=== PATIENT | female | born 1975 | race Caucasian/White ===

== ENCOUNTER → 2017-12-13 12:00 | Outpatient (CLI) | payer OTHER, SELFPAY ==
--- NOTE | 2017-12-13 | DI.MG.S_ITS ---
BILATERAL DIGITAL SCREENING MAMMOGRAM 3D/2D WITH CAD: 12/13/2017 CLINICAL: Routine screening. Family history of breast cancer. Comparison is made to exams dated: 11/05/2016 mammogram and 09/24/2016 mammogram - [facility]. The tissue of both breasts is heterogeneously dense. This may lower the sensitivity of mammography. Current study was also evaluated with a Computer Aided Detection (CAD) system. No significant masses, calcifications, or other findings are seen in either breast. There has been no significant interval change. IMPRESSION: NEGATIVE There is no mammographic evidence of malignancy. A 1 year screening mammogram is recommended. This exam was interpreted at Station ID: [id number]. NOTE: For mammograms, a report in lay terms will be sent to the patient. Approximately 15% of breast malignancies will not be visualized mammographically. In the management of a palpable breast mass, a negative mammogram must not discourage biopsy of a clinically suspicious lesion. Electronically Signed By: Bianca ramirez/jannette:12/13/2017 15:24:19 copy to: Radha Santiago letter sent: Normal Exam ACR BI-RADS Category 1: Negative 3341F
== END ==
PROVIDERS: Family Provider Obstetrics & Gynecology; PCP Obstetrics & Gynecology; Visit Provider Obstetrics & Gynecology
DX: Z12.31 Encounter for screening mammogram for malignant neoplasm of breast (principal); Z80.3 Family history of malignant neoplasm of breast
CPT/HCPCS: 77063; 77067

== ENCOUNTER → 2021-01-09 07:56 | Outpatient (CLI) | payer OTHER, SELFPAY ==
--- NOTE | 2021-01-09 | DI.MG.S_ITS ---
BILATERAL DIGITAL SCREENING MAMMOGRAM 3D/2D WITH CAD: 01/09/2021 CLINICAL: Routine screening. Family history of breast cancer. Comparison is made to exams dated: 11/05/2016 ultrasound, 11/05/2016 ultrasound, 11/05/2016 mammogram, and 09/24/2016 mammogram - [facility]. The tissue of both breasts is heterogeneously dense. This may lower the sensitivity of mammography. Current study was also evaluated with a Computer Aided Detection (CAD) system. There are oval lymph nodes in the left breast posterior depth superior region seen on the mediolateral oblique view only. These are more prominent and increased in size. No other significant masses, calcifications, or other findings are seen in either breast. IMPRESSION: INCOMPLETE: NEEDS ADDITIONAL IMAGING EVALUATION The oval lymph nodes in the left breast are indeterminate. An ultrasound is recommended. This exam was interpreted at Station ID: [id number]. NOTE: For mammograms, a report in lay terms will be sent to the patient. Approximately 15% of breast malignancies will not be visualized mammographically. In the management of a palpable breast mass, a negative mammogram must not discourage biopsy of a clinically suspicious lesion. Electronically Signed By: Amadeo Burroughs M.D. aty/:01/09/2021 09:09:48 copy to: Radha Santiago letter sent: Need Ultrasound ACR BI-RADS Category 0: Incomplete 3340F
== END ==
PROVIDERS: Family Provider Obstetrics & Gynecology; PCP Naturopath; Referring Provider Naturopath; Visit Provider Naturopath
DX: Z12.31 Encounter for screening mammogram for malignant neoplasm of breast (principal); Z80.3 Family history of malignant neoplasm of breast
CPT/HCPCS: 77063; 77067

== ENCOUNTER → 2021-03-14 08:59 | Outpatient (CLI) | payer OTHER, SELFPAY ==
--- NOTE | 2021-03-14 09:01 | DI.US.S_ITS ---
LIMITED ULTRASOUND OF LEFT BREAST: 03/14/2021 CLINICAL: Patient returns today to evaluate focal asymmetries in the left breast. Comparison is made to exams dated: 01/09/2021 mammogram, 12/13/2017 mammogram, and 11/05/2016 mammogram - [facility]. Color flow ultrasound of the left breast 10-2 o'clock region was performed. Kelley scale images of the real-time examination were reviewed. There is a benign 0.8 cm x 0.9 cm x 0.5 cm oval normal lymph node with a circumscribed margin in the left breast at 2 o'clock posterior depth 12 cm from the nipple. This oval normal lymph node is hypoechoic with fatty hilum. This correlates with mammography findings. Color flow imaging demonstrates that there is no vascularity present. IMPRESSION: BENIGN There is no sonographic evidence of malignancy. The 0.8 cm x 0.9 cm x 0.5 cm oval normal lymph node in the left breast is benign. A 1 year screening mammogram is recommended. This exam was interpreted at Station ID: [id number]. Electronically Signed By: Leonel bruce/jannette:03/14/2021 10:07:41 copy to: Radha Santiago letter sent: Normal Exam Ultrasound BI-RADS: 2 Benign
== END ==
PROVIDERS: Family Provider Obstetrics & Gynecology; PCP Naturopath; Referring Provider Naturopath; Visit Provider Naturopath
DX: R92.8 Other abnormal and inconclusive findings on diagnostic imaging of breast (principal); N64.89 Other specified disorders of breast
CPT/HCPCS: 76642

== ENCOUNTER → 2022-01-08 13:56 | Outpatient (CLI) | payer OTHER, SELFPAY ==
--- NOTE | 2022-01-08 | DI.US.S_ITS ---
P weight no no ROCEDURE: US PELVIC COMPLETE INDICATIONS: VAGINAL BLEEDING/POST MENOPAUSE TECHNIQUE: Real-time scanning was performed of the pelvic organs, with image documentation. Additional endovaginal scanning was necessary due to incomplete visualization of the adnexal and endometrial structures by transabdominal scanning. COMPARISON: [facility], , PELVIC COMPLETE, 12/19/2006, 8:05. FINDINGS: Uterus: Uterus is anteverted and normal in size at 6.9 x 2.9 x 3.9 cm. The myometrium is homogeneous. The endometrium measures 1.0 mm combined thickness. Ovaries: The right ovary measures 0.8 x 1.1 x 2.0 cm, with a calculated ovarian volume of 0.8 cc. The left ovary measures 1.6 x 0.8 x 0.9 cm, with a calculated ovarian volume of 0.6 cc. The ovaries have a normal sonographic appearance. Less than 12 follicles can be seen in each ovary. No adnexal masses are seen. Other: No pathologic free abdominal or pelvic fluid. IMPRESSION: No findings to explain postmenopausal bleeding. Endometrium measures 1 mm in combined thickness. We strive to produce accurate, complete, and clear reports of imaging services. To assist us in improving patient care, this report was composed using standard report templates and voice recognition software. Therefore, it may contain abnormal punctuation, insertions and/or omissions. Occasional wrong-word or sound-alike substitutions may occur. Though we review the report and make efforts to correct it, we do recommend that the report be read carefully in proper context to recognize any text inaccuracies. Dictated by: Bianca Figueroa M.D. on 01/08/2022 at 17:28 Approved by: Bianca Figueroa M.D. on 01/08/2022 at 17:29
== END ==
PROVIDERS: Family Provider Obstetrics & Gynecology; PCP Naturopath; Referring Provider Naturopath; Visit Provider Naturopath
DX: N95.0 Postmenopausal bleeding (principal); E34.9 Endocrine disorder, unspecified
CPT/HCPCS: 76830; 76856

== ENCOUNTER → 2022-08-15 15:57 | Outpatient (CLI) | payer OTHER, SELFPAY ==
--- NOTE | 2022-08-15 15:58 | DI.MG.S_ITS ---
BILATERAL DIGITAL SCREENING MAMMOGRAM 3D/2D WITH CAD: 08/15/2022 CLINICAL: Routine screening. Family history of breast cancer. Comparison is made to exams dated: 01/09/2021 mammogram, 12/13/2017 mammogram, and 11/05/2016 mammogram - [facility]. Both breasts are heterogeneously dense, which may obscure small masses (category c / 51-75% glandular tissue). Current study was also evaluated with a Computer Aided Detection (CAD) system. There is an asymmetry with a spiculated margin in the right breast middle depth superior region seen on the mediolateral oblique view only. No other significant masses, calcifications, or other findings are seen in either breast. IMPRESSION: INCOMPLETE: NEEDS ADDITIONAL IMAGING EVALUATION The asymmetry in the right breast is indeterminate. Additional views with possible ultrasound are recommended. Based on the Tyrer Cuzick model (a risk assessment model) the patient's lifetime risk is 13.7% and her 10 year risk is 2.8%. According to the ACR, ACS, and NCCN guidelines, an annual breast MRI exam along with mammogram is recommended if the patient's lifetime risk is 20% or greater. This exam was interpreted at Station ID: [id number]. NOTE: For mammograms, a report in lay terms will be sent to the patient. Approximately 15% of breast malignancies will not be visualized mammographically. In the management of a palpable breast mass, a negative mammogram must not discourage biopsy of a clinically suspicious lesion. Electronically Signed By: Man Tate M.D. acr/:08/16/2022 13:24:02 copy to: Radha Santiago letter sent: Additional Imaging Needed ACR BI-RADS Category 0: Incomplete 3340F
== END ==
PROVIDERS: Family Provider Obstetrics & Gynecology; PCP Naturopath; Referring Provider Naturopath; Visit Provider Naturopath
DX: Z12.31 Encounter for screening mammogram for malignant neoplasm of breast (principal); Z80.3 Family history of malignant neoplasm of breast
CPT/HCPCS: 77063; 77067

== ENCOUNTER → 2022-09-06 11:46 | Outpatient (CLI) | payer OTHER, SELFPAY ==
--- NOTE | 2022-09-06 11:48 | DI.US.S_ITS ---
LIMITED ULTRASOUND OF RIGHT BREAST: 09/06/2022 CLINICAL: Patient returns today to evaluate a focal asymmetry in the right breast. Comparison is made to exams dated: 09/06/2022 mammogram, 08/15/2022 mammogram, 01/09/2021 mammogram, and 12/13/[address] - [facility]. Real-time ultrasound of the right breast 11-12 o'clock region was performed. Kelley scale images of the real-time examination were reviewed. No significant abnormalities were seen sonographically in the right breast. IMPRESSION: NEGATIVE There is no sonographic evidence of malignancy. A 1 year screening mammogram is recommended. Exam findings were conveyed to the patient. This exam was interpreted at Station ID: [id number]. Electronically Signed By: Mukesh Fritz M.D. slc/:09/06/2022 13:03:35 copy to: Radha Santiago letter sent: Normal Exam Ultrasound BI-RADS: 1 Negative
--- NOTE | 2022-09-06 11:48 | DI.MG.S_ITS ---
UNILATERAL RIGHT DIGITAL DIAGNOSTIC MAMMOGRAM 3D/2D WITH ADDITIONAL VIEWS: 09/06/2022 CLINICAL: Additional evaluation requested from prior study. Comparison is made to exams dated: 08/15/2022 mammogram, 01/09/2021 mammogram, and 12/13/2017 mammogram - [facility]. The right breast is heterogeneously dense, which may obscure small masses (category c / 51-75% glandular tissue). There is an asymmetry with a spiculated margin in the right breast middle depth superior region seen on the mediolateral oblique view only. This is not seen in additional views. No other significant masses or calcifications are seen in the breast. IMPRESSION: INCOMPLETE: NEEDS ADDITIONAL IMAGING EVALUATION The asymmetry in the right breast is indeterminate. A targeted ultrasound is recommended and will immediately follow. Based on the Tyrer Cuzick model (a risk assessment model) the patient's lifetime risk is 13.7% and her 10 year risk is 2.8%. According to the ACR, ACS, and NCCN guidelines, an annual breast MRI exam along with mammogram is recommended if the patient's lifetime risk is 20% or greater. This exam was interpreted at Station ID: [id number]. NOTE: For mammograms, a report in lay terms will be sent to the patient. Approximately 15% of breast malignancies will not be visualized mammographically. In the management of a palpable breast mass, a negative mammogram must not discourage biopsy of a clinically suspicious lesion. Electronically Signed By: Mukesh Fritz M.D. slc/:09/06/2022 12:17:31 copy to: Radha Santiago ACR BI-RADS Category 0: Incomplete 3340F
== END ==
PROVIDERS: Family Provider Obstetrics & Gynecology; PCP Naturopath; Referring Provider Naturopath; Visit Provider Naturopath
DX: N64.89 Other specified disorders of breast (principal); R92.8 Other abnormal and inconclusive findings on diagnostic imaging of breast
CPT/HCPCS: 76642; 77065; G0279

== ENCOUNTER 2023-09-20 08:15 | Outpatient (RCR) | payer OTHER, SELFPAY ==
--- NOTE | 2023-07-19 16:09 | PT.OIE ---
Current Diagnoses Other female genital prolapse (07/19/23) Deep dyspareunia (07/19/23) Past Surgical History History of third molar tooth extraction Visit Care Team Role Provider Type Radha Santiago MD Family Provider Physician Specialty: Gynecology CARDIOLOGY TEACHER Obstetrics Address: [address] [place] [address], [address] Email: [email or web address] Attending Provider Non-Staff Primary Care Provider Referring Provider Specialty: Naturopathy Address: [address], [address] [place] [address] [address], [place], [address] Email: Physical Therapy Initial Evaluation PT-OP-A Visit Information Start: 07/04/23 17:52 Freq: Status: Active Protocol: Document 07/19/23 12:59 LRN (Rec: 07/19/23 13:49 LRN [id number]) Out-Patient Physical Therapy Visit Information Visit Information Visit Type Initial Evaluation Visit Start Time 13:00 Visit Stop Time 13:48 Visit Number 1 Evaluation Information Evaluation Date 07/19/23 Precautions Precautions None. Previous L lower abdominal pain from colitis. PT-OP-B Current Condition Start: 07/04/23 17:52 Freq: Status: Active Protocol: Document 07/19/23 12:59 LRN (Rec: 07/19/23 13:49 LRN [id number]) Current Condition History of Current Condition Onset Date 2 yrs ago Current Complaints Urinary leakage. History of Current Condition Pt thinks she has a prolapse resulting in urinary leakage. She denies pelvic or vaginal pain. States it is hard for her to hold her urine and if she thinks she has to urinate she leaks a little. States she has a feeling of fullness and pressure. Has had therapy previously, after first childbirth in 2009. States she feels she has strength in the posterior PF, but not in anterior PF. Pt reports going into menopause 2 yrs ago. Pt is a massage therapist. Prior Treatments and Tests Previous Developmental History Developmental History Pt has had 2 vaginal births. First childbirth in 2008 after 60 hrs in labor (water ) . Urinary leakage started in 2010 after first childbirth ( 2009). 08/09/11 was 2nd childbirth without complications. Treatment Goals Patient/Caregiver Goals Pt goals: 1) Not urinate in her pants several times a day and 2) to start exercising ( running) again, and 3) if prolapse, to reduce prolapse. Personal Factors Other Personal Factors That May Effect Colitis in the past in the Therapy/Recovery Sigmoid Colon. Lives on [place] and is a massage therapist. PT-OP-C Subjective Start: 07/04/23 17:52 Freq: Status: Active Protocol: Document 07/19/23 12:59 LRN (Rec: 07/19/23 13:49 LRN [id number]) Patient Questionnaires Pelvic Pain and Urgency/Frequency Patient Symptom Scale Pelvic Pain Score 2 PT-OP-I Pelvic Floor Start: 07/04/23 17:52 Freq: Status: Active Protocol: Document 07/19/23 12:59 LRN (Rec: 07/19/23 13:49 LRN [id number]) Pelvic Floor Assessment Urine Urinary Symptoms Falling Out Feeling/Heavy Other Urinary Symptoms Waits on toilet to finish urinating. Leakage Size Small Leakage Cause Cough,Lifting,Sneeze,Urge Leaks Per Day 4-5x/day Voiding Frequency 8-10x/day Nocturia 1x Bowel Bowel Movement Frequency 2-3 Pelvic Clock Pelvic Clock 3-6 Tightness Pelvic Clock 6-9 Tightness Pelvic Clock Other Tender at PF 3-5 & 8 of PF clock. Possible tissue swelling at 3- 5 of PF clock. Prolapse Cystocele Grade 2 Prolapse Comments Loose tissue felt at posterior aspect of vaginal canal indicating possible rectocele present. Today no rectocele is palpable. Perineal Descent Resting Absent Bearing Present Contraction Ability Voluntary Contraction Moderate Voluntary Relaxation Moderate Manual Muscle Testing Left 3 Manual Muscle Testing Right 3 Manual Muscle Testing Anterior 2 Manual Muscle Testing Posterior 2 Muscle Endurance (Seconds) 4 Number of Quick Contractions In 10 6 Seconds PT-OP-J Posture/Palpation/Skin Start: 07/04/23 17:52 Freq: Status: Active Protocol: Document 07/19/23 12:59 LRN (Rec: 07/19/23 13:49 LRN [id number]) Posture Evaluation Position Standing Head/C-Spine Posture Forward Head Pelvis Posture Anteriorly Tilted PT-OP-K Range of Motion Start: 07/04/23 17:52 Freq: Status: Active Protocol: Document 07/19/23 12:59 LRN (Rec: 07/19/23 13:49 LRN [id number]) Lumbar Spine Range of Motion Lumbar Spine Active Degrees Testing Position Standing Flexion 120 Extension 15 Rotation Left 30 Rotation Right 30 Lateral Flexion Left 10 Lateral Flexion Right 10 Hip Goniometric Range of Motion Hip Right Passive Testing Position Supine Abduction 40 Internal Rotation 45 External Rotation 70 Left Passive Testing Position Supine Abduction 30 Internal Rotation 35 External Rotation 85 PT-OP-M Strength Start: 07/04/23 17:52 Freq: Status: Active Protocol: Document 07/19/23 12:59 LRN (Rec: 07/19/23 13:49 LRN [id number]) Trunk Strength Trunk Manual Muscle Testing Core Stabilization Good core stability. Hip Strength Hip Manual Muscle Testing Right Flexion (L2) 3+ Fair+ Extension (S1) 3 Fair Abduction 5 Normal Adduction 5 Normal External Rotation 3+ Fair+ Internal Rotation 3+ Fair+ Left Flexion (L2) 4 Good Extension (S1) 3 Fair Abduction 5 Normal Adduction 4+ Good+ External Rotation 3 Fair Internal Rotation 3+ Fair+ PT-OP-Q Treatments Start: 07/04/23 17:52 Freq: Status: Active Protocol: Document 07/19/23 12:59 LRN (Rec: 07/19/23 13:49 LRN [id number]) Self-Care/Home Management Treatment Education Patient Education Home Exercise Program Other Education Discussed results of evaluation, attendance compliance, goals, and plan of care (POC). Pt agreeable to attendance compliance, goals and POC. Pt educated in use of Bladder Diary and I/S in tracking for 1 week. Discussed use of 2 different diaries for tracking of bladder. Activities Self-Care/Home Management Activities Issued & reviewed HEP: Abby ex's and discussed exercise of Quick Flicks, Long Holds and Aggravators. PT-OP-T Assessment and Plan Start: 07/04/23 17:52 Freq: Status: Active Protocol: Document 07/19/23 12:59 LRN (Rec: 07/19/23 13:49 LRN [id number]) Physical Therapy Assessment Rehab Potential Rehabilitation Potential Good Evaluation Complexity Number of Personal Factors/Comorbidities 1-2 Number of Body Systems Impaired 4 or More Clinical Presentation at Evaluation Evolving Impairments Impairments Activity Tolerance,Pain,Soft Tissue Mobility,Strength, Transfers Goals Four Impairment Tenderness of PF at 3-5 & 8 of PF clock. Short Term Goal (STG) Pt will be educated in PF stretching with anant and/or exercise. STG Duration 4 wks-08/26/23 Half-Way Goal (LTG) Pt will no longer have tenderness of her PF around the PF clock. LTG Duration 10 wks-09/27/23 Three Impairment Cytocele Short Term Goal (STG) Reduce feeling of heaviness in the lower abdomen. STG Duration 4 wks-08/26/23 Half-Way Goal (LTG) Reduce bladder drop with cough in supine. LTG Duration 10 wks-09/27/23 Two Impairment Increased freqency of urination Impairment Pt urinates in her pants several times a day. Short Term Goal (STG) Educate in vulvar/genital care . STG Duration 4 wks-08/26/23 Rehab Department Manager Goal (LTG) Eliminate urinary leakage. LTG Duration 10 wks-09/27/23 One Impairment Pt lacks appropriate self care HEP. Short Term Goal (STG) Education in proper methods for transfer with coordination of breathing, PF contractions . STG Duration 4 wks-08/26/23 Rehab Department Manager Goal (LTG) Pt will be able to start exercising (?running) again and independent with a self care HEP of PF/core strengthening and hip L IR/AB, R ER mobility exercises. LTG Duration 10 wks-09/27/23 Assessment Summary Assessment Pt is a 48 yo female with primary complaints of urinary leakage with a cough, sneeze, urge, and with lifting. Appears to have a grade 2 cystocele. She appears to have loosened skin in area of recturm (in supine); therefore she may have possible rectocele. She denied pelvic pain, but with examination of PF she had tenderness of 3-5 & 8 of PF clock. Pt had reported this was an area where she had colitis. She has notable hip and mild core weakness. The pt appears to be able to contract her PF in isolation of her substitute muscles. The pt will benefit from skilled physical therapy to improve PF/hip/core strength, hip mobility ex (hip L IR/AB, R ER) and pt education in coordination of movements with breath and education in self care of perineum and exercises. Physical Therapy Plan Frequency and Duration Frequency of Treatment 1x/Week Duration of treatment (weeks) 10 Plan of Care Start Date 07/19/23 Plan of Care End Date 09/27/23 Therapeutic Interventions Therapeutic Interventions Home Exercise Program,Joint Mobilizations,Manual Therapy, Neuromuscular Re-education, Self-Care/Home Management,Soft Tissue Mobilization,Taping, Therapeutic Activities, Therapeutic Exercises Modalities Biofeedback,Cold Pack/Ice Massage,Electric Stimulation, Hot Packs Next Visit Focus/Plan Next Note Type Treatment Note Next Visit Plan PALOMA/PP (3-5 & 8 O'Clock) Rehab . Next: Neuro [facility] Assessment exercise. Review Bladder dairy and discuss fluid intake (AM/PM), bowel movement frequency, & nighttime voiding frequency and make recommendations as appropriate. Education: vulvar/genital care, PF contractions in coordination of proper breaths with ADLs, transfers, body mechanics and exercise; self PF stretching w/wand and w/ exercise. Ex: Hip stretch (L IR/AB, R ER) & Core/PF strengthening ( anterior ?> posterior) in isolation of substitute muscles, progression to running or other return to exercise activity. Manual: PF stretching 3-5 & 8 of PF clock and/or abdomen.
--- NOTE | 2023-07-19 16:09 | PT.OPPOC ---
Physical, Occupational & Speech Therapy At [facility] Current Diagnoses Other female genital prolapse (07/19/23) Deep dyspareunia (07/19/23) Visit Care Team Role Provider Type Radha Santiago MD Family Provider Physician Specialty: Gynecology GAS WORKER Obstetrics Address: [address] [place] [address], [id number] Email: [email or web address] Attending Provider Non-Staff Primary Care Provider Referring Provider Specialty: Naturopathy Address: [facility] [address], [address] [place] [address] [address], [place], [address] Email: Plan Of Care PT-OP-T Assessment and Plan Start: 07/04/23 17:52 Freq: Status: Active Protocol: Document 07/19/23 12:59 LRN (Rec: 07/19/23 13:49 LRN [id number]) Physical Therapy Assessment Rehab Potential Rehabilitation Potential Good Evaluation Complexity Number of Personal Factors/Comorbidities 1-2 Number of Body Systems Impaired 4 or More Clinical Presentation at Evaluation Evolving Impairments Impairments Activity Tolerance,Pain,Soft Tissue Mobility,Strength, Transfers Goals Four Impairment Tenderness of PF at 3-5 & 8 of PF clock. Short Term Goal (STG) Pt will be educated in PF stretching with wand and/or exercise. STG Duration 4 wks-08/26/23 Data Operations Leader Goal (LTG) Pt will no longer have tenderness of her PF around the PF clock. LTG Duration 10 wks-09/27/23 Three Impairment Cytocele Short Term Goal (STG) Reduce feeling of heaviness in the lower abdomen. STG Duration 4 wks-08/26/23 Usp Goal (LTG) Reduce bladder drop with cough in supine. LTG Duration 10 wks-09/27/23 Two Impairment Increased freqency of urination Impairment Pt urinates in her pants several times a day. Short Term Goal (STG) Educate in vulvar/genital care . STG Duration 4 wks-08/26/23 Usp Goal (LTG) Eliminate urinary leakage. LTG Duration 10 wks-09/27/23 One Impairment Pt lacks appropriate self care HEP. Short Term Goal (STG) Education in proper methods for transfer with coordination of breathing, PF contractions . STG Duration 4 wks-08/26/23 Usp Goal (LTG) Pt will be able to start exercising (?running) again and independent with a self care HEP of PF/core strengthening and hip L IR/AB, R ER mobility exercises. LTG Duration 10 wks-09/27/23 Assessment Summary Assessment Pt is a 48 yo female with primary complaints of urinary leakage with a cough, sneeze, urge, and with lifting. Appears to have a grade 2 cystocele. She appears to have loosened skin in area of recturm (in supine); therefore she may have possible rectocele. She denied pelvic pain, but with examination of PF she had tenderness of 3-5 & 8 of PF clock. Pt had reported this was an area where she had colitis. She has notable hip and mild core weakness. The pt appears to be able to contract her PF in isolation of her substitute muscles. The pt will benefit from skilled physical therapy to improve PF/hip/core strength, hip mobility ex (hip L IR/AB, R ER) and pt education in coordination of movements with breath and education in self care of perineum and exercises. Physical Therapy Plan Frequency and Duration Frequency of Treatment 1x/Week Duration of treatment (weeks) 10 Plan of Care Start Date 07/19/23 Plan of Care End Date 09/27/23 Therapeutic Interventions Therapeutic Interventions Home Exercise Program,Joint Mobilizations,Manual Therapy, Neuromuscular Re-education, Self-Care/Home Management,Soft Tissue Mobilization,Taping, Therapeutic Activities, Therapeutic Exercises Modalities Biofeedback,Cold Pack/Ice Massage,Electric Stimulation, Hot Packs Next Visit Focus/Plan Next Note Type Treatment Note Next Visit Plan PALOMA/PP (3-5 & 8 O'Clock) Rehab . Next: Neuro Herman of [employer] Assessment exercise. Review Bladder dairy and discuss fluid intake (AM/PM), bowel movement frequency, & nighttime voiding frequency and make recommendations as appropriate. Education: vulvar/genital care, PF contractions in coordination of proper breaths with ADLs, transfers, body mechanics and exercise; self PF stretching w/wand and w/ exercise. Ex: Hip stretch (L IR/AB, R ER) & Core/PF strengthening ( anterior ?> posterior) in isolation of substitute muscles, progression to running or other return to exercise activity. Manual: PF stretching 3-5 & 8 of PF clock and/or abdomen. Plan of Care Dates Plan of Care Start Date 07/19/23 Plan of Care End Date 09/27/23 Electronically Signed by: Bianca Bowling, PT 07/19/23 [id number] If you are in agreement with this Plan of Care, please return a signed and dated copy. I have reviewed this Plan of Care and certify that the skilled therapy services above are required to meet the patient?s needs. Physician Signature Date Printed Name and Credentials Clinical Instructor Signature Printed Name and Credentials
--- NOTE | 2023-07-26 15:06 | PT.OTN ---
Current Diagnoses Other female genital prolapse (07/26/23) Deep dyspareunia (07/26/23) Physical Therapy Treatment Note PT-OP-A Visit Information Start: 07/04/23 17:52 Freq: Status: Active Protocol: Document 07/26/23 13:01 LRN (Rec: 07/26/23 14:17 LRN [id number]) Out-Patient Physical Therapy Visit Information Visit Information Visit Type Treatment Note Visit Start Time 13:01 Visit Stop Time 13:44 Visit Number 2 Evaluation Information Evaluation Date 07/19/23 Precautions Precautions None. Previous L lower abdominal pain from colitis. PT-OP-B Current Condition Start: 07/04/23 17:52 Freq: Status: Active Protocol: Document 07/19/23 12:59 LRN (Rec: 07/19/23 13:49 LRN [id number]) Current Condition History of Current Condition Onset Date 2 yrs ago Current Complaints Urinary leakage. History of Current Condition Pt thinks she has a prolapse resulting in urinary leakage. She denies pelvic or vaginal pain. States it is hard for her to hold her urine and if she thinks she has to urinate she leaks a little. States she has a feeling of fullness and pressure. Has had therapy previously, after first childbirth in 2009. States she feels she has strength in the posterior PF, but not in anterior PF. Pt reports going into menopause 2 yrs ago. Pt is a massage therapist. Prior Treatments and Tests Previous Developmental History Developmental History Pt has had 2 vaginal births. First childbirth in 2008 after 60 hrs in labor (water ) . Urinary leakage started in 2010 after first childbirth ( 2009). 08/09/11 was 2nd childbirth without complications. Treatment Goals Patient/Caregiver Goals Pt goals: 1) Not urinate in her pants several times a day and 2) to start exercising ( running) again, and 3) if prolapse, to reduce prolapse. Personal Factors Other Personal Factors That May Effect Colitis in the past in the Therapy/Recovery Sigmoid Colon. 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 PT-OP-C Subjective Start: 07/04/23 17:52 Freq: Status: Active Protocol: Document 07/26/23 13:01 LRN (Rec: 07/26/23 14:17 LRN [id number]) OP-PT Subjective Patient Comments Patient Comments Didn't do bladder diary, but wrote it out. [place] she urinates a lot and if she goes often she doesn't leak. PT-OP-I Pelvic Floor Start: 07/04/23 17:52 Freq: Status: Active Protocol: Document 07/19/23 12:59 LRN (Rec: 07/19/23 13:49 LRN [id number]) Pelvic Floor Assessment Urine Urinary Symptoms Falling Out Feeling/Heavy Other Urinary Symptoms Waits on toilet to finish urinating. Leakage Size Small Leakage Cause Cough,Lifting,Sneeze,Urge Leaks Per Day 4-5x/day Voiding Frequency 8-10x/day Nocturia 1x Bowel Bowel Movement Frequency 2-3 Pelvic Clock Pelvic Clock 3-6 Tightness Pelvic Clock 6-9 Tightness Pelvic Clock Other Tender at PF 3-5 & 8 of PF clock. Possible tissue swelling at 3- 5 of PF clock. Prolapse Cystocele Grade 2 Prolapse Comments Loose tissue felt at posterior aspect of vaginal canal indicating possible rectocele present. Today no rectocele is palpable. Perineal Descent Resting Absent Bearing Present Contraction Ability Voluntary Contraction Moderate Voluntary Relaxation Moderate Manual Muscle Testing Left 3 Manual Muscle Testing Right 3 Manual Muscle Testing Anterior 2 Manual Muscle Testing Posterior 2 Muscle Endurance (Seconds) 4 Number of Quick Contractions In 10 6 Seconds PT-OP-J Posture/Palpation/Skin Start: 07/04/23 17:52 Freq: Status: Active Protocol: Document 07/26/23 13:01 LRN (Rec: 07/26/23 14:24 LRN [id number]) Palpation Assessment Location Abdomen Palpation Location Abdomen Palpation Findings Soft Tissue Tightness Palpation Details Umbilicus 4 above: Xiphoid Process Umbilicus 3 above: 2 finger widths Umbilicus 2 above: 2 finger widths Umbilicus 1 above: 2 finger widths Umbilicus Umbilicus: 1 below: 1.5 finger widths Umbilicus: 2 below: Closed PT-OP-K Range of Motion Start: 07/04/23 17:52 Freq: Status: Active Protocol: Document 07/19/23 12:59 LRN (Rec: 07/19/23 13:49 LRN [id number]) Lumbar Spine Range of Motion Lumbar Spine Active Degrees Testing Position Standing Flexion 120 Extension 15 Rotation Left 30 Rotation Right 30 Lateral Flexion Left 10 Lateral Flexion Right 10 Hip Goniometric Range of Motion Hip Right Passive Testing Position Supine Abduction 40 Internal Rotation 45 External Rotation 70 Left Passive Testing Position Supine Abduction 30 Internal Rotation 35 External Rotation 85 PT-OP-M Strength Start: 07/04/23 17:52 Freq: Status: Active Protocol: Document 07/19/23 12:59 LRN (Rec: 07/19/23 13:49 LRN [id number]) Trunk Strength Trunk Manual Muscle Testing Core Stabilization Good core stability. Hip Strength Hip Manual Muscle Testing Right Flexion (L2) 3+ Fair+ Extension (S1) 3 Fair Abduction 5 Normal Adduction 5 Normal External Rotation 3+ Fair+ Internal Rotation 3+ Fair+ Left Flexion (L2) 4 Good Extension (S1) 3 Fair Abduction 5 Normal Adduction 4+ Good+ External Rotation 3 Fair Internal Rotation 3+ Fair+ PT-OP-Q Treatments Start: 07/04/23 17:52 Freq: Status: Active Protocol: Document 07/26/23 13:01 LRN (Rec: 07/26/23 14:17 LRN [id number]) Therapeutic Exercises Sitting Exercises Hip ER stretch Sitting Exercise Name Hip ER stretch Side right Reps/Minutes 5' Comments Extra time taken to train pt on stretch, cuing to keep WBing on Isch Tub's Piriformis Stretch Sitting Exercise Name Piriformis stretch (pt did both but I/S pt to do L only for now) Side left Reps/Minutes 7' Comments Extra time taken to train pt on stretch, pulling knee to opp shdr vs other Hip AD stretch Sitting Exercise Name Hip AD stretch (pt did both but I/S pt to do L only for now) Side left Reps/Minutes 2' Comments Extra time taken to train pt on stretch and for self STM to AD's Manual Therapy Treatment Soft Tissue Mobilization PF Body Location PF superficial and deep around the PF clock Mobilization Type Sustained Pressure Intensity/Depth Moderate Body Position Supine Comments Assessed PF for pain, NO PAIN noted. Pt had uncomfortable sensation at rectal region on R mediolateral side, possible vein/artery? Self-Care/Home Management Treatment Education Other Education Reviewed bladder diary and discussed times between voids, void times, fluid intake (AM /PM), bowel movement frequency , nighttime voiding frequency, and timing of fluids (water before bladder irritant). Discussed, at length, Food [employer] Bever[employer] Bladder Diet handout . Activities Self-Care/Home Management Activities I/S pt in HEP: Hip AD stretch (just L to start), L Piriformis (sitting), R hip ER 's and agreed pt could stretch IT band. Issued Food [employer] Bever[employer] Bladder Diet handout. PT-OP-T Assessment and Plan Start: 07/04/23 17:52 Freq: Status: Active Protocol: Document 07/26/23 13:01 LRN (Rec: 07/26/23 14:17 LRN [id number]) Physical Therapy Assessment Goals Four Impairment Tenderness of PF at 3-5 & 8 of PF clock. Short Term Goal (STG) Pt will be educated in PF stretching with wand and/or exercise. 07/26/23: Pt had no areas of tenderness of PF. STG Duration 4 wks-08/26/23 (07/26/23: Goal found not to be appropriate). Immersion Metal Cleaner Goal (LTG) Pt will no longer have tenderness of her PF around the PF clock. 07/26/23: No tenderness around the PF clock. LTG Duration 10 wks-09/27/23 (07/26/23: MET GOAL). Three Impairment Cytocele Short Term Goal (STG) Reduce feeling of heaviness in the lower abdomen. STG Duration 4 wks-08/26/23 Immersion Metal Cleaner Goal (LTG) Reduce bladder drop with cough in supine. LTG Duration 10 wks-09/27/23 Two Impairment Increased freqency of urination Impairment Pt urinates in her pants several times a day. Short Term Goal (STG) Educate in vulvar/genital care . STG Duration 4 wks-08/26/23 Intermediate Goal (LTG) Eliminate urinary leakage. LTG Duration 10 wks-09/27/23 One Impairment Pt lacks appropriate self care HEP. Short Term Goal (STG) Education in proper methods for transfer with coordination of breathing, PF contractions . STG Duration 4 wks-08/26/23 Intermediate Goal (LTG) Pt will be able to start exercising (?running) again and independent with a self care HEP of PF/core strengthening and hip L IR/AB, R ER mobility exercises. LTG Duration 10 wks-09/27/23 Assessment Summary Assessment 48 yo female with PALOMA (with cough, sneeze, urge, and with lifting); and probable grade 2 cystocele, possible rectocele . Per bladder diary review, it appears pt has increased urinary voiding due to bladder irritants of caffeinated & carbonated drinks through her day with ~26-32 oz of water. Today, no PF tenderness/ tightness palpable. She has a bulge in R mediolateral rectal region per vaginal PF palpation that gives her ick feeling. Pt is receptive to hip stretches. Physical Therapy Plan Frequency and Duration Frequency of Treatment 1x/Week Duration of treatment (weeks) 10 Plan of Care Start Date 07/19/23 Plan of Care End Date 09/27/23 Next Visit Focus/Plan Next Note Type Treatment Note Next Visit Plan Next: Neuro [facility] of [facility]em[facility] Assessment exercise. Education: vulvar/genital care, PF contractions in coordination of proper breaths with ADLs, transfers, body mechanics and exercise; self PF stretching w/wand and w/ exercise. Review Hip stretch (L IR/AB, R ER) Ex: Core/PF strengthening ( anterior ?> posterior) in isolation of substitute muscles, progression to running or other return to exercise activity. Manual: Stretching abdomen. POC: PALOMA/PF (propensity for tightness) Rehab.
--- NOTE | 2023-07-29 04:54 | PT-OP ANOTE ---
Pt canceled day before due to illness.
--- NOTE | 2023-09-20 16:13 | PT.OTN ---
Current Diagnoses Other female genital prolapse (09/20/23) Deep dyspareunia (09/20/23) Physical Therapy Treatment Note PT-OP-A Visit Information Start: 07/04/23 17:52 Freq: Status: Active Protocol: Document 09/20/23 08:21 LRN (Rec: 09/20/23 09:04 LRN [id number]) Out-Patient Physical Therapy Visit Information Visit Information Visit Type Treatment Note Visit Start Time 08:21 Visit Stop Time 09:01 Visit Number 3 Evaluation Information Evaluation Date 07/19/23 Precautions Precautions None. Previous L lower abdominal pain from colitis. PT-OP-B Current Condition Start: 07/04/23 17:52 Freq: Status: Active Protocol: Document 07/19/23 12:59 LRN (Rec: 07/19/23 13:49 LRN [id number]) Current Condition History of Current Condition Onset Date 2 yrs ago Current Complaints Urinary leakage. History of Current Condition Pt thinks she has a prolapse resulting in urinary leakage. She denies pelvic or vaginal pain. States it is hard for her to hold her urine and if she thinks she has to urinate she leaks a little. States she has a feeling of fullness and pressure. Has had therapy previously, after first childbirth in 2009. States she feels she has strength in the posterior PF, but not in anterior PF. Pt reports going into menopause 2 yrs ago. Pt is a massage therapist. Prior Treatments and Tests Previous Developmental History Developmental History Pt has had 2 vaginal births. First childbirth in 2008 after 60 hrs in labor (water ) . Urinary leakage started in 2010 after first childbirth ( 2009). 08/09/11 was 2nd childbirth without complications. Treatment Goals Patient/Caregiver Goals Pt goals: 1) Not urinate in her pants several times a day and 2) to start exercising ( running) again, and 3) if prolapse, to reduce prolapse. Personal Factors Other Personal Factors That May Effect Colitis in the past in the Therapy/Recovery Sigmoid Colon. 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 PT-OP-C Subjective Start: 07/04/23 17:52 Freq: Status: Active Protocol: Document 09/20/23 08:21 LRN (Rec: 09/20/23 09:04 LRN [id number]) OP-PT Subjective Patient Comments Patient Comments Pt states she is not leakaing daily and her hip mobility has improved with stretches. States now that she knows what to work on, and feels comfortable continuing on her own home exercise program. She hopes to extend her POC and transfer to a therapist on [place], for treatment of her knee pain. PT-OP-I Pelvic Floor Start: 07/04/23 17:52 Freq: Status: Active Protocol: Document 07/19/23 12:59 LRN (Rec: 07/19/23 13:49 LRN [id number]) Pelvic Floor Assessment Urine Urinary Symptoms Falling Out Feeling/Heavy Other Urinary Symptoms Waits on toilet to finish urinating. Leakage Size Small Leakage Cause Cough,Lifting,Sneeze,Urge Leaks Per Day 4-5x/day Voiding Frequency 8-10x/day Nocturia 1x Bowel Bowel Movement Frequency 2-3 Pelvic Clock Pelvic Clock 3-6 Tightness Pelvic Clock 6-9 Tightness Pelvic Clock Other Tender at PF 3-5 & 8 of PF clock. Possible tissue swelling at 3- 5 of PF clock. Prolapse Cystocele Grade 2 Prolapse Comments Loose tissue felt at posterior aspect of vaginal canal indicating possible rectocele present. Today no rectocele is palpable. Perineal Descent Resting Absent Bearing Present Contraction Ability Voluntary Contraction Moderate Voluntary Relaxation Moderate Manual Muscle Testing Left 3 Manual Muscle Testing Right 3 Manual Muscle Testing Anterior 2 Manual Muscle Testing Posterior 2 Muscle Endurance (Seconds) 4 Number of Quick Contractions In 10 6 Seconds PT-OP-J Posture/Palpation/Skin Start: 07/04/23 17:52 Freq: Status: Active Protocol: Document 07/26/23 13:01 LRN (Rec: 07/26/23 14:24 LRN [id number]) Palpation Assessment Location Abdomen Palpation Location Abdomen Palpation Findings Soft Tissue Tightness Palpation Details Umbilicus 4 above: Xiphoid Process Umbilicus 3 above: 2 finger widths Umbilicus 2 above: 2 finger widths Umbilicus 1 above: 2 finger widths Umbilicus Umbilicus: 1 below: 1.5 finger widths Umbilicus: 2 below: Closed PT-OP-K Range of Motion Start: 07/04/23 17:52 Freq: Status: Active Protocol: Document 07/19/23 12:59 LRN (Rec: 07/19/23 13:49 LRN [id number]) Lumbar Spine Range of Motion Lumbar Spine Active Degrees Testing Position Standing Flexion 120 Extension 15 Rotation Left 30 Rotation Right 30 Lateral Flexion Left 10 Lateral Flexion Right 10 Hip Goniometric Range of Motion Hip Right Passive Testing Position Supine Abduction 40 Internal Rotation 45 External Rotation 70 Left Passive Testing Position Supine Abduction 30 Internal Rotation 35 External Rotation 85 PT-OP-M Strength Start: 07/04/23 17:52 Freq: Status: Active Protocol: Document 07/19/23 12:59 LRN (Rec: 07/19/23 13:49 LRN [id number]) Trunk Strength Trunk Manual Muscle Testing Core Stabilization Good core stability. Hip Strength Hip Manual Muscle Testing Right Flexion (L2) 3+ Fair+ Extension (S1) 3 Fair Abduction 5 Normal Adduction 5 Normal External Rotation 3+ Fair+ Internal Rotation 3+ Fair+ Left Flexion (L2) 4 Good Extension (S1) 3 Fair Abduction 5 Normal Adduction 4+ Good+ External Rotation 3 Fair Internal Rotation 3+ Fair+ PT-OP-Q Treatments Start: 07/04/23 17:52 Freq: Status: Active Protocol: Document 09/20/23 08:21 LRN (Rec: 09/20/23 09:04 LRN [id number]) Therapeutic Exercises Supine Exercises PF contraction w/cough Supine Exercise Name Aggrevator trng: Cough with and w/o PF contraction Reps/Minutes 8' Sitting Exercises Hip ER stretch Sitting Exercise Name Verbal review Side right Reps/Minutes 1' Comments Extra time taken to train pt on stretch, cuing to keep WBing on Isch Tub's Piriformis Stretch Sitting Exercise Name Verbal review Side left Reps/Minutes 1' Comments Extra time taken to train pt on stretch, pulling knee to opp shdr vs other Hip AD stretch Sitting Exercise Name Verbal review Side left Reps/Minutes 1' Comments Extra time taken to train pt on stretch and for self STM to AD's Self-Care/Home Management Treatment Education Other Education Education in proper methods for transfer with coordination of breathing, PF contractions . Educated pt in vulvar/genital care. Discussed severity of prolapse and ex's that she could consider for cardio workouts ( ex-swim, paddleboard, bike upright). Discussed process for knee rehab and her need to DC from PF rehab and obtain a new referral to begin rehab on [place] for her knee. Activities Self-Care/Home Management Activities Handouts issued for transfer with coordination of breathing , PF contractions, and vulvar/ genital care. PT-OP-T Assessment and Plan Start: 07/04/23 17:52 Freq: Status: Active Protocol: Document 09/20/23 08:21 LRN (Rec: 09/20/23 09:04 LRN [id number]) Physical Therapy Assessment Goals Four Impairment Tenderness of PF at 3-5 & 8 of PF clock. Short Term Goal (STG) Pt will be educated in PF stretching with wand and/or exercise. 07/26/23: Pt had no areas of tenderness of PF. STG Duration 4 wks-08/26/23 (07/26/23: Goal found not to be appropriate). Tucking Machine Operator Goal (LTG) Pt will no longer have tenderness of her PF around the PF clock. 07/26/23: No tenderness around the PF clock. LTG Duration 10 wks-09/27/23 (07/26/23: MET GOAL). Three Impairment Cytocele Short Term Goal (STG) Reduce feeling of heaviness in the lower abdomen. 09/20/23: Heaviness feeling is there with running/ trampoline, but otherwise her feeling of heaviness has reduced. STG Duration MET GOAL Tucking Machine Operator Goal (LTG) Reduce bladder drop with cough in supine. LTG Duration MET GOAL Two Impairment Increased freqency of urination Impairment Pt urinates in her pants several times a day. Short Term Goal (STG) Educate in vulvar/genital care . STG Duration MET GOAL. Tucking Machine Operator Goal (LTG) Eliminate urinary leakage. 09/20/23: Not leaking because going to bathroom when has the urge. LTG Duration MET GOAL. One Impairment Pt lacks appropriate self care HEP. Short Term Goal (STG) Education in proper methods for transfer with coordination of breathing, PF contractions . STG Duration MET GOAL. Tucking Machine Operator Goal (LTG) Pt will be able to start exercising (?running) again and independent with a self care HEP of PF/core strengthening and hip L IR/AB, R ER mobility exercises. 09/20/23: Started Pilates, can walk and hike without difficulty. Doing hip mobiltiy ex's of L hip AD and R hip stretches. LTG Duration MET GOAL Assessment Summary Assessment Pt is a 48 yo female seen for PALOMA (with cough, sneeze, urge, and with lifting) with propensity for PF tightness; probable grade 2 cystocele, possible rectocele. Pt has been able to manage her urinary incontinence by behavior modification and use of urge deference technique to be able to make it to bathroom without leaking. Pt goals have been met and pt is agreeable to discharge so that she can pursue knee rehab on [place]; therefore pt is being discharged today to her [facility]. Physical Therapy Plan Discharge Physical Therapy Discharge Reasons Goals Met Discharge Comments Pt plans to seek PT for her knee on [place]. The pt could benefit from core w/PF strengthening that can be achieved during her knee rehab . Thank you for your referral .
== END 2023-09-23 08:52 | disposition home or self-care (01) ==
LOC: PHYS 08:15
PROVIDERS: Family Provider Obstetrics & Gynecology; PCP Naturopath; Referring Provider Naturopath; Visit Provider Naturopath
DX: N94.12 Deep dyspareunia (principal); N81.89 Other female genital prolapse
CPT/HCPCS: 97110; 97140; 97162; 97535

== ENCOUNTER → 2024-01-28 14:42 | Outpatient (CLI) | payer BC, SELFPAY ==
--- NOTE | 2024-01-28 14:44 | DI.MG.S_ITS ---
BILATERAL DIGITAL SCREENING MAMMOGRAM 3D/2D WITH CAD: 01/28/2024 CLINICAL: Routine screening. Family history of breast cancer. Comparison is made to exams dated: 08/15/2022 mammogram, 01/09/2021 mammogram, and 12/13/2017 mammogram - [facility]. The breasts are heterogeneously dense, which may obscure small masses (category c / 51-75% glandular tissue). Current study was also evaluated with a Computer Aided Detection (CAD) system. No significant masses, calcifications, or other findings are seen in either breast. There has been no significant interval change. IMPRESSION: NEGATIVE There is no mammographic evidence of malignancy. A 1 year screening mammogram is recommended. Based on the Tyrer Cuzick model (a risk assessment model) the patient's lifetime risk is 13.6% and her 10 year risk is 3.1%. According to the ACR, ACS, and NCCN guidelines, an annual breast MRI exam along with mammogram is recommended if the patient's lifetime risk is 20% or greater. This exam was interpreted at Station ID: [id number]. NOTE: For mammograms, a report in lay terms will be sent to the patient. Approximately 15% of breast malignancies will not be visualized mammographically. In the management of a palpable breast mass, a negative mammogram must not discourage biopsy of a clinically suspicious lesion. Electronically Signed By: Chelle [email or web address]/[email or web address]:01/29/2024 14:27:55 copy to: Radha Santiago letter sent: Normal Exam ACR BI-RADS Category 1: Negative 3341F
== END ==
PROVIDERS: Family Provider Obstetrics & Gynecology; PCP Naturopath; Referring Provider Naturopath; Visit Provider Naturopath
DX: Z12.31 Encounter for screening mammogram for malignant neoplasm of breast (principal); Z80.3 Family history of malignant neoplasm of breast; R92.333 Mammographic heterogeneous density, bilateral breasts
CPT/HCPCS: 77063; 77067

== ENCOUNTER → 2024-07-24 07:41 | Outpatient (CLI) | payer BC, SELFPAY ==
--- NOTE | 2024-07-24 07:42 | DI.US.S_ITS ---
PROCEDURE: US PELVIC COMPLETE INDICATIONS: ABN PHYSICAL EXAM/TOP OF CERVIX WAS BULBUS TECHNIQUE: Real-time scanning was performed of the pelvic organs, with image documentation. Additional endovaginal scanning was necessary due to incomplete visualization of the adnexal and endometrial structures by transabdominal scanning. COMPARISON: [facility], US, US PELVIC COMPLETE, 01/08/2022, 14:23. FINDINGS: Uterus: Uterus is intervertebral it and normal in size at 7.2 x 3.0 x 4.4 cm. The myometrium is heterogeneous. No discrete uterine fibroids. The endometrium measures 3.8 mm combined thickness. No endometrial mass or fluid. Ovaries: The right ovary measures 2.0 x 1.2 x 1.5 cm, with a calculated ovarian volume of 1.8 cc. The left ovary measures 0.8 x 1.2 x 1.6 cm, with a calculated ovarian volume of 0.9 cc. The ovaries have a normal sonographic appearance. Less than 12 follicles can be seen in each ovary. No adnexal masses are seen. Other: No pathologic free abdominal or pelvic fluid. IMPRESSION: Unremarkable ultrasound examination of uterus and bilateral ovaries. We strive to produce accurate, complete, and clear reports of imaging services. To assist us in improving patient care, this report was composed using standard report templates and voice recognition software. Therefore, it may contain abnormal punctuation, insertions and/or omissions. Occasional wrong-word or sound-alike substitutions may occur. Though we review the report and make efforts to correct it, we do recommend that the report be read carefully in proper context to recognize any text inaccuracies. Dictated by: Oskar Hudson M.D. on 07/24/2024 at 11:39 Approved by: Oskar Hudson M.D. on 07/24/2024 at 11:40
== END ==
PROVIDERS: Family Provider Obstetrics & Gynecology; PCP Naturopath; Referring Provider Naturopath; Visit Provider Naturopath
DX: R87.610 Atypical squamous cells of undetermined significance on cytologic smear of cervix (ASC-US) (principal); N94.11 Superficial (introital) dyspareunia; N94.10 Unspecified dyspareunia; L53.9 Erythematous condition, unspecified; N95.2 Postmenopausal atrophic vaginitis; Z87.440 Personal history of urinary (tract) infections; Z12.4 Encounter for screening for malignant neoplasm of cervix
CPT/HCPCS: 76830; 76856

== ENCOUNTER → 2025-02-26 09:07 | Outpatient (CLI) | payer BC, SELFPAY ==
--- NOTE | 2025-02-26 09:08 | DI.MG.S_ITS ---
MM screening mammo BI: 02/26/2025. BI-RADS: 1 CLINICAL: 50-year old female for bilateral screening mammogram. Tyrer-Cuzick lifetime risk of 20.9%. Current reported family history of breast cancer: mother. PRIOR EXAMS 01/28/2024, 09/06/2022, 08/15/2022, 03/14/2021. MAMMOGRAPHY TECHNIQUE: 2D and 3D (tomosynthesis) digital mammographic views obtained, with additional images as needed for full coverage. Current study was also evaluated with a Computer Aided Detection (CAD) system. DENSITY C. The breasts are heterogeneously dense, which may obscure small masses. MAMMOGRAPHY FINDINGS Bilateral: No suspicious mass, asymmetry, microcalcification, or other abnormality seen. IMPRESSION: * No evidence of malignancy. RECOMMENDATIONS Bilateral * According to the Tyrer-Cuzick Risk Assessment Model, based on the information provided your patient has a greater than 20% lifetime risk for developing breast cancer. Consider supplemental screening with breast MRI and participation in a high risk screening program. * Annual screening mammography. OVERALL ASSESSMENT CATEGORY BI-RADS-1: Negative. [employer] recommends annual screening mammography beginning at age 40 for women with average risk of breast cancer. ELECTRONICALLY SIGNED: Ania Rosario M.D. on 02/28/2025 at 11:40:10 PM PT Interpreting Station ID: [id number]
== END ==
LOC: MAMMO 09:07
PROVIDERS: Family Provider Obstetrics & Gynecology; PCP Naturopath; Referring Provider Naturopath; Visit Provider Naturopath
DX: Z12.31 Encounter for screening mammogram for malignant neoplasm of breast (principal); R92.333 Mammographic heterogeneous density, bilateral breasts; Z80.3 Family history of malignant neoplasm of breast
CPT/HCPCS: 77063; 77067